=== PATIENT | female | born 1940 | race Caucasian/White ===

== ENCOUNTER → 2017-02-22 | Outpatient (CLI) | payer MEDICARE, OTHER ==
[~2017-02-22] MED LIST: REGADENOSON 0.4 MG/5 ML SYRINGE ONE
== END | disposition home or self-care (01) ==
LOC: CFH 08:50
PROVIDERS: ATTEND Internal Medicine Cardiovascular Disease
DX: I25.9 Chronic ischemic heart disease, unspecified (principal); I25.10 Atherosclerotic heart disease of native coronary artery without angina pectoris; I49.3 Ventricular premature depolarization
CPT/HCPCS: 78452; 93017; A9502; J2785

== ENCOUNTER 2017-03-06 10:34 | Observation (INO) | payer MEDICARE ==
[2017-03-05 11:31] VITALS: BP 153/97
[2017-03-05 12:05] LABS: HEMATOCRIT 41.2 % (34.6-47.8); HEMOGLOBIN 13.4 g/dL (11.7-16.4)
[2017-03-05 12:12] LABS: ASPARTATE AMINO TRANSFERASE 20 U/L (15-37); BLOOD UREA NITROGEN 12 mg/dL (7-18)
[~2017-03-06] VITALS: Ht 160 cm; Wt 69.1 kg
[~2017-03-06 10:34] MED LIST changes: +ATOR20TA9 PO; +GABA300C10 PO; +HYDR25TA6 PO; +LISI-167 PO; -REGADENOSON 0.4 MG/5 ML SYRINGE ONE
[2017-03-06] MEDS ORDERED: SODIUM CHLORIDE 0.9% 1,000 ML IV SCH (11:07)
[2017-03-06] MEDS ORDERED: BISACODYL 10 MG SUPP PR PRN (11:30)
[2017-03-06] MEDS ORDERED: ACETAMINOPHEN 325 MG TABLET PO PRN ×2 (11:30→14:00)
[2017-03-06] MEDS ORDERED: ONDANSETRON 2MG/ML, 2ML IVPush PRN ×2 (11:30→14:00)
[2017-03-06] MEDS ORDERED: ZOLPIDEM 5MG TABLET PO PRN ×2 (11:30→14:00)
[2017-03-06] MEDS ORDERED: ASPIRIN 325 MG TABLET EC PO ONE (11:30)
[2017-03-06] MEDS ORDERED: BISACODYL 5 MG EC TABLET PO PRN (11:30)
[2017-03-06 11:45] LABS: BLOOD UREA NITROGEN 12 mg/dL (7-18)
[2017-03-06] MEDS ORDERED: MIDAZOLAM 1 MG/ML, 5ML ONE (12:17)
[2017-03-06] MEDS ORDERED: BIVALIRUDIN 250 MG ONE (12:17)
[2017-03-06] MEDS ORDERED: FENTANYL PF 100 MCG/2ML ONE (12:17)
[2017-03-06] MEDS ORDERED: HEPARIN 1,000 UNITS/ML, 10ML ONE (12:17)
[2017-03-06] MEDS ORDERED: NITROGLYCERIN 5 MG/ML, 10ML ONE (12:17)
[2017-03-06] MEDS ORDERED: VERAPAMIL 2.5 MG/ML, 2ML ONE (12:17)
[2017-03-06] MEDS ORDERED: LIDOCAINE 2%, 20ML ONE (12:17)
[2017-03-06] MEDS ORDERED: TICAGRELOR 90 MG TABLET ONE (13:20)
[2017-03-06] MEDS ORDERED: BIVALIRUDIN 250 MG in DEXTROSE 5% 50 ML IV SCH (13:57)
[2017-03-06] MEDS ORDERED: GABAPENTIN 300 MG CAPSULE PO PRN (19:00)
[2017-03-06 19:51] VITALS: BP 124/79
[2017-03-06] MEDS ORDERED: ATORVASTATIN 20 MG TABLET PO SCH (21:00)
[2017-03-06 21:10] LABS: IS PT STATUS REG ER OR PRE ER? NO
[2017-03-06] MEDS: TICAGRELOR 90 MG TABLET PO SCH (22:20)
[2017-03-07 08:00] VITALS: BP 149/97
[2017-03-07 08:17] LABS: BLOOD UREA NITROGEN 11 mg/dL (7-18)
[2017-03-07 08:18] LABS: HEMATOCRIT 38.5 % (34.6-47.8); HEMOGLOBIN 12.8 g/dL (11.7-16.4)
[2017-03-07] MEDS: TICAGRELOR 90 MG TABLET PO SCH (09:00)
[2017-03-07] MEDS ORDERED: LISINOPRIL 10 MG TABLET PO SCH (09:00)
[2017-03-07] MEDS ORDERED: HYDROCHLOROTHIAZIDE 25 MG TABLET PO SCH (09:00)
[2017-03-07] MEDS ORDERED: MELO7.5T31 PO (11:48)
[2017-03-07] MEDS ORDERED: CALCIUM PO (11:48)
[2017-03-07] MEDS ORDERED: FISH OIL PO (11:49)
[2017-03-07] MEDS ORDERED: ASPI-496 PO (11:52)
[2017-03-07] MEDS ORDERED: TICA90TA PO (11:53)
== END 2017-03-07 12:10 | disposition home or self-care (01) ==
LOC: CACL 10:34 → ORIP 13:57 → 5SO 14:39 → DCLOUNGE 03-07 11:40
PROVIDERS: ADMIT Internal Medicine Cardiovascular Disease; ATTEND Internal Medicine Cardiovascular Disease
DX: I25.110 Atherosclerotic heart disease of native coronary artery with unstable angina pectoris (principal); I10 Essential (primary) hypertension; E78.2 Mixed hyperlipidemia; I49.3 Ventricular premature depolarization
CPT/HCPCS: 36415; 71020; 80048; 80053; 82040; 84484; 85014; 85018; 85025; 85610; 85730; 92978; 93005; 93458; 99156; 99157; C1725; C1753; C1769; C1874; C1887; C1894; C9600; G0378; J0583; J1644; J2250; J3010; J3490; Q9967

== ENCOUNTER → 2017-11-27 | Outpatient (CLI) | payer MEDICARE ==
[~2017-11-27] MED LIST changes: +ASPI-496 PO; +CALCIUM PO; +FISH OIL PO; +LIDOCAINE-MPF 1%, 2ML ONE; +MELO7.5T31 PO; +ROPivacaine/PF 0.2%, 10 ML ONE; +TICA90TA PO; +TRIAMCINOLONE ACETONIDE 40 MG/ML, 1ML ONE
== END | disposition home or self-care (01) ==
LOC: RAD 14:38
PROVIDERS: ATTEND Nurse Practitioner
DX: M79.671 Pain in right foot (principal); M19.071 Primary osteoarthritis, right ankle and foot
CPT/HCPCS: 20605; 77002; J2795; J3301; J3490

== ENCOUNTER → 2018-01-25 | Outpatient (CLI) | payer MEDICARE ==
[~2018-01-25] MED LIST changes: -LIDOCAINE-MPF 1%, 2ML ONE; +REGADENOSON 0.4 MG/5 ML SYRINGE ONE; -ROPivacaine/PF 0.2%, 10 ML ONE; -TRIAMCINOLONE ACETONIDE 40 MG/ML, 1ML ONE
== END | disposition home or self-care (01) ==
LOC: CFH 11:24
PROVIDERS: ATTEND Internal Medicine Cardiovascular Disease
DX: I25.10 Atherosclerotic heart disease of native coronary artery without angina pectoris (principal)
CPT/HCPCS: 78452; 93017; A9502; J2785

== ENCOUNTER → 2018-05-27 | Outpatient (CLI) | payer MEDICARE ==
[~2018-05-27] MED LIST changes: +CALC1CAP8 PO; +GLUC-121 PO; +MATURE MVT PO; -REGADENOSON 0.4 MG/5 ML SYRINGE ONE
[2018-05-27 14:07] LABS: BASOPHILS # (AUTO) 0.02 x10^3/uL (0-0.1); BASOPHILS % (AUTO) 0 % (0-1); EOSINOPHILS # (AUTO) 0.07 x10^3/uL (0-0.4); EOSINOPHILS % (AUTO) 1 % (1-7); LYMPHOCYTES # (AUTO) 1.65 x10^3/uL (1-3.4); LYMPHOCYTES % (AUTO) 27 % (22-44); MD NO; MEAN CORPUSCULAR HEMOGLOBIN 31.4 pg (27.0-34.8); MEAN CORPUSCULAR HGB CONC 33.3 g/dL (32.4-35.8); MEAN CORPUSCULAR VOLUME 94.3 fL (80-100); MEAN PLATELET VOLUME 6.9 fL (7.4-10.4); MONOCYTES # (AUTO) 0.51 x10^3/uL (0.2-0.8); MONOCYTES % (AUTO) 8 % (2-9); NEUTROPHILS # (AUTO) 3.96 x10^3/uL (1.8-6.8); NEUTROPHILS % (AUTO) 64 % (42-75); PLATELET COUNT 394 x10^3/uL (130-400); RED BLOOD COUNT 4.22 x10^6/uL (3.82-5.3); RED CELL DISTRIBUTION WIDTH 13.4 % (9.6-15.2)
[2018-05-27 14:12] LABS: INTERNATIONAL NORMALIZED RATIO 1.05 (0.93-1.1); PROTHROMBIN TIME 11.1 Seconds (9.6-11.5)
[2018-05-27 14:14] LABS: ALBUMIN 3.8 g/dL (3.4-5.0); ANION GAP 8 mmol/L (5-15); CALCIUM 8.8 mg/dL (8.5-10.1); CHLORIDE 101 mmol/L (98-107)
[2018-05-27 14:17] LABS: ALANINE AMINOTRANSFERASE 24 U/L (12-78); ALKALINE PHOSPHATASE 127 U/L (45-117); BILIRUBIN,TOTAL 0.7 mg/dL (0.2-1.0); TOTAL PROTEIN 7.5 g/dL (6.4-8.2)
== END | disposition home or self-care (01) ==
LOC: STAR 13:10
PROVIDERS: ATTEND Surgery
DX: Z01.818 Encounter for other preprocedural examination (principal)
CPT/HCPCS: 36415; 80053; 85025; 85610; 93005

== ENCOUNTER 2018-06-13 11:01 | Day surgery (SDC) | payer MEDICARE ==
[2018-05-27 13:38] VITALS: BP 143/90
[~2018-06-13] VITALS: Ht 160 cm; Wt 68.2 kg
[~2018-06-13 11:01] MED LIST changes: +ATOR20TA37 PO; -ATOR20TA9 PO; +BUPIVACAINE/PF-EPI 0.5% 1:200K ONE
[2018-06-13] MEDS ORDERED: LACTATED RINGERS 1,000 ML IV SCH (11:28)
[2018-06-13] MEDS ORDERED: FENTANYL PF 100 MCG/2ML ONE (11:59)
[2018-06-13] MEDS ORDERED: ONDANSETRON 2MG/ML, 2ML ONE (12:00)
[2018-06-13] MEDS ORDERED: DEXAMETHASONE 4 MG/ML, 1ML ONE (12:00)
[2018-06-13] MEDS ORDERED: CEFAZOLIN 1,000 MG ONE (12:00)
[2018-06-13] MEDS ORDERED: PROPOFOL 10 MG/ML, 20ML ONE (12:00)
[2018-06-13] MEDS ORDERED: KETOROLAC 30 MG/1 ML ONE (12:34)
[2018-06-13] MEDS ORDERED: PROMETHAZINE 25 MG/ML, 1ML IV PRN (13:00)
[2018-06-13] MEDS ORDERED: FENTANYL PF 100 MCG/2ML IV PRN (13:00)
[2018-06-13] MEDS ORDERED: ACETAMINOPHEN 325 MG TABLET PO PRN (13:00)
[2018-06-13] MEDS ORDERED: HYDROmorphone 2 MG/ML, 1ML IVPush PRN (13:00)
[2018-06-13] MEDS ORDERED: OXYcodone 5 MG/5 ML ORAL.SOL UDC PO PRN (13:00)
[2018-06-13] MEDS ORDERED: ONDANSETRON 2MG/ML, 2ML IV PRN (13:00)
[2018-06-13] MEDS ORDERED: ONDANSETRON ODT 8 MG PO PRN (13:00)
[2018-06-13] MEDS ORDERED: OXYcodone 5 MG/5 ML ORAL.SOL UDC ONE (14:05)
[2018-06-13] MEDS ORDERED: EPHEDRINE 50 MG/ML, 1ML ONE (15:46)
== END 2018-06-13 16:20 | disposition home or self-care (01) ==
LOC: OUT 11:01
PROVIDERS: ATTEND Surgery
DX: K40.90 Unilateral inguinal hernia, without obstruction or gangrene, not specified as recurrent (principal); E78.5 Hyperlipidemia, unspecified; I10 Essential (primary) hypertension; Z86.73 Personal history of transient ischemic attack (TIA), and cerebral infarction without residual deficits; Z85.3 Personal history of malignant neoplasm of breast; Z98.890 Other specified postprocedural states; Z95.5 Presence of coronary angioplasty implant and graft; Z90.11 Acquired absence of right breast and nipple; Z79.82 Long term (current) use of aspirin; Z79.899 Other long term (current) drug therapy; Z72.89 Other problems related to lifestyle; Z88.1 Allergy status to other antibiotic agents
CPT/HCPCS: 49505; C1781; J0690; J1100; J1885; J2405; J2704; J3010; J7120

== ENCOUNTER 2018-09-13 12:26 | Outpatient (CLI) | payer MEDICARE ==
[~2018-09-13 12:26] MED LIST changes: -BUPIVACAINE/PF-EPI 0.5% 1:200K ONE; +LIDOCAINE-MPF 1%, 5ML ONE; +ROPivacaine/PF 0.2%, 10 ML ONE; +TRIAMCINOLONE ACETONIDE 40 MG/ML, 1ML ONE
== END 2018-09-13 23:59 | disposition home or self-care (01) ==
LOC: RAD 12:26
PROVIDERS: ATTEND Nurse Practitioner
DX: M19.071 Primary osteoarthritis, right ankle and foot (principal)
CPT/HCPCS: 20605; 77002; J2795; J3301

== ENCOUNTER 2019-09-07 14:48 | Emergency (ER) | payer MEDICARE ==
[~2019-09-07] VITALS: Ht 160 cm; Wt 68.9 kg
[~2019-09-07 14:48] MED LIST changes: -LIDOCAINE-MPF 1%, 5ML ONE; -ROPivacaine/PF 0.2%, 10 ML ONE; -TRIAMCINOLONE ACETONIDE 40 MG/ML, 1ML ONE
[2019-09-07 15:22] VITALS: BP 160/83
--- NOTE | 2019-09-07 15:22 | NUR ---
PT CAME IN FROM FOR FEELING LIGHT HEADED. PT DENIES CHEST PAIN, [place]. MD IS BEDSIDE. BLANKET PROVIDED. CALL LIGHT WITHIN REACH
[2019-09-07 15:31] LABS: BASOPHILS # (AUTO) 0.01 x10^3/uL (0-0.1); BASOPHILS % (AUTO) 0 % (0-1); EOSINOPHILS # (AUTO) 0.13 x10^3/uL (0-0.4); EOSINOPHILS % (AUTO) 2 % (1-7); LYMPHOCYTES # (AUTO) 1.74 x10^3/uL (1-3.4); LYMPHOCYTES % (AUTO) 30 % (22-44); MD NO; MEAN CORPUSCULAR HEMOGLOBIN 31.3 pg (27.0-34.8); MEAN CORPUSCULAR HGB CONC 32.9 g/dL (32.4-35.8); MEAN CORPUSCULAR VOLUME 95.3 fL (80-100); MEAN PLATELET VOLUME 7.1 fL (7.4-10.4); MONOCYTES # (AUTO) 0.52 x10^3/uL (0.2-0.8); MONOCYTES % (AUTO) 9 % (2-9); NEUTROPHILS # (AUTO) 3.39 x10^3/uL (1.8-6.8); NEUTROPHILS % (AUTO) 59 % (42-75); PLATELET COUNT 376 x10^3/uL (130-400); RED BLOOD COUNT 4.17 x10^6/uL (3.82-5.3); RED CELL DISTRIBUTION WIDTH 13.6 % (9.6-15.2)
[2019-09-07 15:41] LABS: ALBUMIN 3.9 g/dL (3.4-5.0); ANION GAP 10 mmol/L (5-15); CALCIUM 8.9 mg/dL (8.5-10.1); CHLORIDE 99 mmol/L (98-107); CREATININE 0.82 mg/dL (0.55-1.02)
[2019-09-07 15:45] LABS: TROPONIN I < 0.015 ng/mL (0.000-0.045)
== END 2019-09-07 17:05 | disposition home or self-care (01) ==
LOC: ED 15:50
DX: R42 Dizziness and giddiness (principal); I10 Essential (primary) hypertension; I45.10 Unspecified right bundle-branch block; R06.02 Shortness of breath
CPT/HCPCS: 36415; 80048; 82040; 84484; 85025; 93005; 99284

== ENCOUNTER → 2019-10-28 | Outpatient (CLI) | payer MEDICARE ==
[~2019-10-28] MED LIST changes: +REGADENOSON 0.4 MG/5 ML SYRINGE ONE
== END | disposition home or self-care (01) ==
LOC: CFH 08:14
PROVIDERS: ATTEND Internal Medicine Cardiovascular Disease
DX: I45.19 Other right bundle-branch block (principal); I25.10 Atherosclerotic heart disease of native coronary artery without angina pectoris; R42 Dizziness and giddiness; I48.0 Paroxysmal atrial fibrillation
CPT/HCPCS: 78452; 93017; A9502; J2785

== ENCOUNTER 2020-10-26 07:11 | Outpatient (CLI) | payer MEDICARE ==
[~2020-10-26 07:11] MED LIST changes: -REGADENOSON 0.4 MG/5 ML SYRINGE ONE
[2020-10-26] MEDS ORDERED: OMNIPAQUE 300 MG/ML, 10ML VIAL ONE (07:30)
[2020-10-26] MEDS ORDERED: LIDOCAINE-MPF 1%, 5ML ONE (07:35)
[2020-10-26] MEDS ORDERED: ROPivacaine/PF 0.2%, 10 ML ONE (07:35)
[2020-10-26] MEDS ORDERED: TRIAMCINOLONE ACETONIDE 40 MG/ML, 1ML ONE (07:35)
== END 2020-10-26 23:59 | disposition home or self-care (01) ==
LOC: RAD 07:11
PROVIDERS: ATTEND Nurse Practitioner
DX: M19.071 Primary osteoarthritis, right ankle and foot (principal); M79.671 Pain in right foot; Z79.82 Long term (current) use of aspirin; Z79.899 Other long term (current) drug therapy; Z88.2 Allergy status to sulfonamides; Z85.3 Personal history of malignant neoplasm of breast
CPT/HCPCS: 20605; 77002; J2795; J3301; Q9967